=== PATIENT | male | born 1975 | race Two or more races ===

== ENCOUNTER 2017-03-01 16:14 | Emergency (ER) | payer OTHER ==
[~2017-03-01] VITALS: Ht 172.7 cm; Wt 145.6 kg
--- NOTE | 2017-03-01 18:30 | NUR ---
WANTS REFILL FOR ANTIBIOTIC AND PAIN MEDICATION FOR HIS LEFT LEG WOUND WANTS REFILL FOR ANTIBIOTIC AND PAIN MEDICATION FOR HIS LEFT LEG WOUND, NAD NOTED, VSS, PUT ON HOSPITAL GOWN, AND MONITOR WAITING FOR MD KIDD.
[2017-03-01 19:07] LABS: BASOPHILS # (AUTO) 0.6 /CMM (0.0-0.2); EOSINOPHILS # (AUTO) 0.2 /CMM (0.0-0.7); EOSINOPHILS % (AUTO) 3.5 % (0.0-6.0); HEMATOCRIT 36 % (39-51); HEMOGLOBIN 12.1 g/dL (13.5-17.5); LYMPHOCYTES # (AUTO) 1.1 /CMM (0.8-4.8); MEAN CORPUSCULAR HEMOGLOBIN 31 PG (26.0-33.0); MEAN CORPUSCULAR HGB CONC 34 g/dl (31.0-36.0); MEAN CORPUSCULAR VOLUME 91 fL (80-96); MONOCYTES # (AUTO) 0.3 /CMM (0.1-1.30); MONOCYTES % (AUTO) 5.3 % (2.0-12.0); NEUTROPHILS # (AUTO) 2.8 /CMM (1.8-8.9); NEUTROPHILS % (AUTO) 56.4 % (43.0-81.0); PLATELET COUNT (AUTO) 183 /CMM (150-450); RDW COEFFICIENT OF VARIATION 14.1 (11.5-15.0); RED BLOOD CELL COUNT(AUTO) 3.96 MIL/uL (4.5-6.0)
[2017-03-01 19:08] LABS: BASOPHILS % (AUTO) 12.8 % (0.0-2.0)
[2017-03-01 19:13] LABS: CALCIUM, SERUM 8.5 mg/dL (8.5-10.1); CREATININE 0.8 mg/dL (0.6-1.3); POTASSIUM 4.1 mmol/L (3.5-5.1)
[2017-03-01 19:16] LABS: INR 1.14 (0.87-1.13); PROTHROMBIN TIME 11.9 SECS (9.5-12.7)
[2017-03-01 19:24] LABS: ALBUMIN 2.8 g/dL (3.4-5.0); BILIRUBIN,TOTAL 0.6 mg/dL (0.2-1.0); TOTAL PROTEIN, SERUM 7.8 g/dL (6.4-8.2)
[2017-03-01 19:30] VITALS: BP 131/81
[2017-03-01] MEDS ORDERED: HYDROCODONE/APAP 5/325MG 1 EACH TABLET ONE (19:54)
[2017-03-01] MEDS ORDERED: ONDANSETRON 4 MG TAB.RAPDIS ONE (20:27)
[2017-03-01] MEDS ORDERED: ONDANSETRON 4 MG TAB.RAPDIS SL ONE (20:30)
[2017-03-01] MEDS ORDERED: HYDROCODONE/APAP 5/325MG 1 EACH TABLET PO ONE (20:30)
== END 2017-03-01 21:15 | disposition home or self-care (01) ==
LOC: ER 16:24
DX: L97.829 Non-pressure chronic ulcer of other part of left lower leg with unspecified severity (principal); I10 Essential (primary) hypertension; Z86.718 Personal history of other venous thrombosis and embolism; Z98.890 Other specified postprocedural states
CPT/HCPCS: 36415; 80053; 85025; 85610; 85730; 87070; 87077; 87186; 93971; 99285; A4606; Q0162; Z7610

== ENCOUNTER 2017-04-09 14:40 | Emergency (ER) | payer OTHER ==
[~2017-04-09] VITALS: Ht 172.7 cm; Wt 152.0 kg
--- NOTE | 2017-04-09 14:45 | NUR ---
PT TO ER BED 12 VIA WHEELCHAIR. PRESENTS W/ LLE PAIN. CELLULIS NOTED. STATES BEEN TAKING ANTIBIOTIC FOR IT. NO FEVER. STABLE VITALS. AWAITING MD KIDD.
--- NOTE | 2017-04-09 14:58 | NUR ---
DR RICKETTS AT BEDSIDE FOR EVAL.
[2017-04-09] MEDS ORDERED: TRAMADOL HCL 50 MG TABLET PO ONE (15:00)
[2017-04-09] MEDS ORDERED: CLINDAMYCIN HCL 150 MG CAPSULE PO ONE ×2 (15:00→15:02)
[2017-04-09] MEDS ORDERED: TRAMADOL HCL 50 MG TABLET ONE (15:02)
--- NOTE | 2017-04-09 15:06 | NUR ---
JIMENA MILIAN AT BEDSIDE FOR WOUND CARE.
[2017-04-09 15:28] VITALS: BP 115/65
--- NOTE | 2017-04-09 15:28 | NUR ---
Patient discharged to home in stable condition. Written and verbal after care instructions given. Patient verbalizes understanding of instruction.
== END 2017-04-09 15:30 | disposition home or self-care (01) ==
LOC: ER 14:41
DX: L03.116 Cellulitis of left lower limb (principal); E66.9 Obesity, unspecified; I10 Essential (primary) hypertension; Z86.718 Personal history of other venous thrombosis and embolism; F17.200 Nicotine dependence, unspecified, uncomplicated
CPT/HCPCS: 99283; A4606; A6402; Z7610

== ENCOUNTER 2019-12-04 15:45 | Emergency (ER) | payer OTHER ==
[~2019-12-04] VITALS: Ht 172.7 cm; Wt 122.5 kg
--- NOTE | 2019-12-04 15:48 | NUR ---
called to triage,no answer
[2019-12-04 16:04] VITALS: BP 137/101
== END 2019-12-04 16:28 | disposition home or self-care (01) ==
LOC: ER 15:45
DX: Z76.0 Encounter for issue of repeat prescription (principal); I10 Essential (primary) hypertension; Z86.73 Personal history of transient ischemic attack (TIA), and cerebral infarction without residual deficits; Z98.890 Other specified postprocedural states; Z60.2 Problems related to living alone

== ENCOUNTER 2020-07-02 13:03 | Emergency (ER) | payer OTHER ==
[~2020-07-02] VITALS: Ht 170.2 cm; Wt 86.2 kg
[2020-07-02 13:17] VITALS: BP 141/87
--- NOTE | 2020-07-02 14:15 | NUR ---
AT BEDSIDE FOR EVAL
--- NOTE | 2020-07-02 14:32 | NUR ---
Patient does not wish to proceed with medical care recommended by Dr. Brock. Patient given information related to possible complications, up to and including , which could occur as a result of leaving the hospital at this time. Patient verbalizes understanding of risks involved due to leaving against medical advice. Patient has signed AMA form.
== END 2020-07-02 14:34 | disposition left against medical advice (07) ==
LOC: ER 13:05
DX: L03.116 Cellulitis of left lower limb (principal); I10 Essential (primary) hypertension; F17.200 Nicotine dependence, unspecified, uncomplicated; Z76.0 Encounter for issue of repeat prescription; E66.01 Morbid (severe) obesity due to excess calories; Z68.29 Body mass index [BMI] 29.0-29.9, adult; Z98.890 Other specified postprocedural states; Z86.73 Personal history of transient ischemic attack (TIA), and cerebral infarction without residual deficits; Z60.2 Problems related to living alone